=== PATIENT | female | born 2000 | race Caucasian/White ===

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

== ENCOUNTER → 2022-03-16 | Outpatient (CLI) | payer OTHER ==
[2022-03-16 11:53] LABS: HEMATOCRIT 33.1 % (36.0-47.0); HEMOGLOBIN 11.4 g/dl (12.0-15.5); MEAN CORPUSCULAR HEMOGLOBIN 31.9 pg (27.0-33.0); MEAN CORPUSCULAR HGB CONC 34.4 g/dl (32.0-36.5); MEAN CORPUSCULAR VOLUME 92.7 fl (80.0-96.0); PLATELET COUNT, AUTOMATED 208 10^3/uL (150-450); RED BLOOD COUNT 3.57 10^6/uL (4.00-5.40); WHITE BLOOD COUNT 15.9 10^3/uL (4.0-10.0)
== END ==
LOC: M LAB 10:24
PROVIDERS: ATTEND Obstetrics & Gynecology
DX: Z34.82 Encounter for supervision of other normal pregnancy, second trimester (principal)

== ENCOUNTER → 2022-04-12 | Outpatient (REF) | payer OTHER | LOC: M LAB REF 16:11 | PROVIDERS: ATTEND Obstetrics & Gynecology | DX: R30.0 Dysuria (principal) ==

== ENCOUNTER → 2022-05-02 | Outpatient (REF) | payer OTHER | LOC: M LAB REF 16:26 | PROVIDERS: ATTEND Obstetrics & Gynecology | DX: Z34.83 Encounter for supervision of other normal pregnancy, third trimester (principal) ==

== ENCOUNTER 2022-05-23 05:18 | Inpatient (IN) | payer OTHER ==
[~2022-05-23] VITALS: Ht 157.5 cm; Wt 65.2 kg
[2022-05-23] VITALS (8 sets, daily range): BP systolic 108–127; BP diastolic 55–76
[~2022-05-23 05:18] MED LIST changes: +MACR100C43 PO
[2022-05-23] MEDS ORDERED: MULTTAB20 PO (05:35)
[2022-05-23] MEDS ORDERED: HOME MED LIST COMPLETE! XX SCH (05:40)
[2022-05-23] MEDS ORDERED: LACTATED RINGER'S 1000 ML IV STA (05:42)
[2022-05-23] MEDS ORDERED: ceFAZolin SOD 2 GM in IV 1 EA IV ONE (05:45)
[2022-05-23] MEDS ORDERED: LR 1,000 ML IV SCH ×2 (05:45→08:45)
[2022-05-23] MEDS ORDERED: BICITRA 30ML SOLN UDC PO ONE (05:45)
[2022-05-23 06:25] LABS: HEMATOCRIT 33.8 % (36.0-47.0); HEMOGLOBIN 11.6 g/dl (12.0-15.5); MEAN CORPUSCULAR HEMOGLOBIN 32.1 pg (27.0-33.0); MEAN CORPUSCULAR HGB CONC 34.3 g/dl (32.0-36.5); MEAN CORPUSCULAR VOLUME 93.6 fl (80.0-96.0); PLATELET COUNT, AUTOMATED 280 10^3/uL (150-450); RED BLOOD COUNT 3.61 10^6/uL (4.00-5.40); WHITE BLOOD COUNT 14.5 10^3/uL (4.0-10.0)
[2022-05-23] MEDS ORDERED: MORPHINE PRES-FREE INJ 10 MG/10 ML VIAL As Ordered ONE (07:18)
[2022-05-23] MEDS ORDERED: KETOROLAC 60MG 2ML VIAL As Ordered ONE (07:18)
[2022-05-23] MEDS ORDERED: ONDANSETRON 4MG 2ML VIAL As Ordered ONE (07:18)
[2022-05-23] MEDS ORDERED: OXYTOCIN INJ 10UNITS/ML 1ML VIAL As Ordered ONE (07:18)
[2022-05-23] MEDS ORDERED: fentaNYL 100 MCG/2 ML INJECTION As Ordered ONE (07:18)
[2022-05-23 08:21] LABS: CORD GAS ABE A -3.6; CORD GAS HCO3 A 23.3 MEQ/L; CORD GAS O2 SAT A 54.8 %; CORD GAS PH A 7.287 UNITS; CORD GAS PO2 A 28.5 mmHg; CORD GAS SBC A 20.6 MEQ/L; CORD GAS TCO2 A 24.9 MEQ/L
[2022-05-23 08:24] LABS: CORD GAS HCO3 V 22.3 MEQ/L
[2022-05-23 08:25] LABS: CORD GAS ABE V -2.7; CORD GAS PCO2 V 39.8 mmHg; CORD GAS PH V 7.367 UNITS; CORD GAS PO2 V 39.8 mmHg; CORD GAS SBC V 21.9 MEQ/L; CORD GAS TCO2 V 23.6 MEQ/L
[2022-05-23] MEDS: LR 1,000 ML IV SCH ×2 (08:30→14:04)
[2022-05-23] MEDS ORDERED: RHOGAM 300MCG (1500IU) INJ IM SCH (08:30)
[2022-05-23] MEDS ORDERED: MOM 30ML SUSPENSION UDC PO PRN (08:30)
[2022-05-23] MEDS ORDERED: OXYTOCIN DRIP 30 UNITS in IV 1 EA IV SCH (08:30)
[2022-05-23] MEDS ORDERED: PERCOCET 5MG/325MG TAB PO PRN (08:30)
[2022-05-23] MEDS ORDERED: ePHEDrine SULFATE 25 MG/5 ML(5MG/ML) SYRINGE As Ordered ONE (08:33)
[2022-05-23] MEDS ORDERED: NALOXONE INJ 0.4MG/1ML VIAL IV PRN ×2 (08:45)
[2022-05-23] MEDS ORDERED: fentaNYL 100 MCG/2 ML INJECTION IV PRN (08:45)
[2022-05-23] MEDS ORDERED: **NOTE PATIENT COMMENT** MISC XX SCH (08:45)
[2022-05-23] MEDS ORDERED: METOCLOPRAMIDE INJ 10MG/2ML VIAL IV PRN (08:45)
[2022-05-23] MEDS ORDERED: ONDANSETRON 4MG 2ML VIAL IV PRN (08:45)
[2022-05-23] MEDS ORDERED: oxyCODONE 5MG TAB PO PRN (08:45)
[2022-05-23] MEDS ORDERED: diphenhydrAMINE 50MG/ML VIAL IV PRN (08:45)
[2022-05-23] MEDS: SLF 3 ML SYR IV SCH ×2 (08:45→14:04)
[2022-05-23] MEDS ORDERED: MORPHINE 2 MG/ML 1ML VIAL IV PRN (08:45)
[2022-05-23] MEDS ORDERED: OXYTOCIN 30UNITS IN 0.9% NaCl 500ML IV BAG As Ordered ONE (08:55)
[2022-05-23] MEDS: PRENATAL VITAMINS CHEWABLE TABLET PO SCH (09:00)
[2022-05-23] MEDS: DOCUSATE SODIUM 100MG CAPSULE PO SCH ×2 (09:00→20:26)
[2022-05-23] MEDS: KETOROLAC 30 MG/ML 1ML VIAL IV SCH ×2 (14:02→20:26)
[2022-05-23] MEDS ORDERED: LR 500 ML IV ONE (16:25)
[2022-05-24] MEDS: LR 1,000 ML IV SCH ×3 (01:24→16:30)
[2022-05-24] MEDS: SLF 3 ML SYR IV SCH ×2 (01:29→08:11)
[2022-05-24 02:09] VITALS: BP 115/57
[2022-05-24] MEDS: KETOROLAC 30 MG/ML 1ML VIAL IV SCH (02:26)
[2022-05-24 06:00] VITALS: BP 107/51
[2022-05-24 06:29] LABS: HEMATOCRIT 27.5 % (36.0-47.0); MEAN CORPUSCULAR HEMOGLOBIN 32.2 pg (27.0-33.0); MEAN CORPUSCULAR HGB CONC 34.2 g/dl (32.0-36.5); MEAN CORPUSCULAR VOLUME 94.2 fl (80.0-96.0); PLATELET COUNT, AUTOMATED 217 10^3/uL (150-450); RED BLOOD COUNT 2.92 10^6/uL (4.00-5.40)
[2022-05-24 06:33] LABS: HEMOGLOBIN 9.4 g/dl (12.0-15.5)
[2022-05-24] MEDS: DOCUSATE SODIUM 100MG CAPSULE PO SCH ×2 (08:11→20:29)
[2022-05-24] MEDS: PRENATAL VITAMINS CHEWABLE TABLET PO SCH (08:11)
[2022-05-24] MEDS: SIMETHICONE 80MG CHEW TAB PO PRN ×3 (09:53→20:58)
[2022-05-24] MEDS: PERCOCET 5MG/325MG TAB PO PRN ×2 (09:55→16:58)
[2022-05-24] MEDS: IBUPROFEN 800 MG TAB PO SCH ×2 (09:55→18:30)
[2022-05-24 10:00] VITALS: BP 120/60
[2022-05-24 14:00] VITALS: BP 125/61
[2022-05-24 18:00] VITALS: BP 133/82
[2022-05-24 22:00] VITALS: BP 117/65
[2022-05-25] MEDS: LR 1,000 ML IV SCH (00:30)
[2022-05-25] MEDS: IBUPROFEN 800 MG TAB PO SCH ×2 (01:56→10:06)
[2022-05-25 02:00] VITALS: BP 129/81
[2022-05-25 06:00] VITALS: BP 132/61
[2022-05-25] MEDS: PRENATAL VITAMINS CHEWABLE TABLET PO SCH (08:25)
[2022-05-25] MEDS ORDERED: MEASLES,MUMPS,RUBELLA VACCINE INJ (MMR-II) SC.IMMUN ONE (09:00)
[2022-05-25 10:00] VITALS: BP 125/71
[2022-05-25] MEDS: PERCOCET 5MG/325MG TAB PO PRN (10:05)
[2022-05-25] MEDS: DOCUSATE SODIUM 100MG CAPSULE PO SCH (10:06)
[2022-05-25] MEDS ORDERED: COLA100C5 PO (10:08)
[2022-05-25] MEDS ORDERED: OXYC-517 PO (10:09)
[2022-05-25] MEDS ORDERED: ACET-683 PO (10:09)
[2022-05-25] MEDS ORDERED: IBUP-1022 PO (10:09)
== END 2022-05-25 12:04 | disposition home or self-care (01) | DRG 540 ==
LOC: M LDI 05:18 → M OBS 09:50
PROVIDERS: ADMIT Obstetrics & Gynecology; ATTEND Obstetrics & Gynecology
PROC: 0UT70ZZ Resection of Bilateral Fallopian Tubes, Open Approach (ICD-10-PCS; 2022-05-23)
PROC: 10D00Z1 Extraction of Products of Conception, Low, Open Approach (ICD-10-PCS; principal; 2022-05-23 07:30)
DX: O34.211 Maternal care for low transverse scar from previous cesarean delivery (principal); O32.1XX0 Maternal care for breech presentation, not applicable or unspecified; Z37.0 Single live birth; Z30.2 Encounter for sterilization; Z3A.38 38 weeks gestation of pregnancy